=== PATIENT | male | born 1995 | race Caucasian/White ===

== ENCOUNTER 2016-10-22 00:18 | Emergency (ER) | payer OTHER ==
[2016-10-22 00:38] VITALS: RESP 16
--- NOTE | 2016-10-22 00:53 | EDPHY ---
H & P Stated Complaint: CP EARLIER Time Seen by Provider: 10/22/16 00:41 HPI/ROS: CHIEF COMPLAINT: Intermittent chest pain and anxiety HISTORY OF PRESENT ILLNESS: The patient is a 21-year-old man who comes to the emergency department complaining of intermittent chest pain that is worse with movement. It has been resolved for the last 2 hours. He states that it happened 2 or 3 times this evening. Each time lasting only for a few seconds. He states that it caused him to hyperventilate and become anxious. Denies having any cardiac history. He denies shortness of breath. No recent travel. He is a smoker. No leg pain or swelling. He is currently asymptomatic. He is not tachycardic or tachypneic or hypoxic. He did have a upper respiratory tract infection last week. REVIEW OF SYSTEMS: Constitutional: denies: chills, fever, recent illness, recent injury EENTM: denies: blurred vision, double vision, nose congestion Respiratory: denies: cough, shortness of breath Cardiac: See HPI Gastrointestinal/Abdominal: denies: abdominal pain, diarrhea, nausea, vomiting, blood streaked stools Genitourinary: denies: dysuria, frequency, hematuria, pain Musculoskeletal: denies: joint pain, muscle pain Skin: denies: lesions, rash, jaundice, bruising Neurological: denies: headache, numbness, paresthesia, tingling, dizziness, weakness Hematologic/Lymphatic: denies: blood clots, easy bleeding, easy bruising Immunologic/allergic: denies: HIV/AIDS, transplant EXAM: GENERAL: Well-appearing, well-nourished and in no acute distress. HEAD: Atraumatic, normocephalic. EYES: Pupils equal round and reactive to light, extraocular movements intact, sclera anicteric, conjunctiva are normal. ENT: TMs normal, nares patent, oropharynx clear without exudates. Moist mucous membranes. NECK: Normal range of motion, supple without lymphadenopathy or JVD. LUNGS: Breath sounds clear to auscultation bilaterally and equal. No wheezes rales or rhonchi. HEART: Regular rate and rhythm without murmurs, rubs or gallops. ABDOMEN: Soft, nontender, normoactive bowel sounds. No guarding, no rebound. No masses appreciated. BACK: No CVA tenderness, no spinal tenderness, step-offs or deformities EXTREMITIES: Normal range of motion, no pitting or edema. No clubbing or cyanosis. NEUROLOGICAL: Cranial nerves II through XII grossly intact. Normal speech, normal gait. 5/5 strength, normal movement in all extremities, normal sensation PSYCH: Normal mood, normal affect. SKIN: Warm, dry, normal turgor, no visible rashes or lesions. Source: Patient Exam Limitations: No limitations - Personal History Current Tetanus/Diphtheria Vaccine: Yes - Medical/Surgical History Hx Asthma: Yes Hx Chronic Respiratory Disease: No Hx Diabetes: No Hx Cardiac Disease: No Hx Renal Disease: No Hx Cirrhosis: No Hx Alcoholism: No Hx HIV/AIDS: No Hx Splenectomy or Spleen Trauma: No Other PMH: ASTHMA-NO MEDS. R SHOULDER CUFF - Family History Significant Family History: No pertinent family hx - Social History Smoking Status: Current some day smoker Alcohol Use: Sober Drug Use: None Constitutional: Initial Vital Signs Temperature (C) 36.4 C 10/22/16 00:25 Heart Rate 102 H 10/22/16 00:25 Respiratory Rate 16 10/22/16 00:25 Blood Pressure 174/93 H 10/22/16 00:25 O2 Sat (%) 96 10/22/16 00:25 O2 Delivery Mode Room Air Allergies/Adverse Reactions: No Known Allergies Allergy (Unverified 10/22/16 00:31) Home Medications: Medication Instructions Recorded NK [No Known Home Meds] 10/22/16 Medical Decision Making - Diagnostics EKG Interpretation: An EKG obtained and was read and documented in trace view. Please see trace view for full reading and report. ED Course/Re-evaluation: Patient is well appearing. I suspect anxiety possibly costochondritis muscle wall pain. We will obtain an EKG otherwise patient is currently asymptomatic and declines further workup or testing. He is eager to go home. He feels reassured. Differential Diagnosis: Partial list of the Differential diagnosis considered include but were not limited to; anxiety, chest wall pain, costochondritis, pericarditis and although unlikely based on the history and physical exam, I also considered PE, acute coronary disease, arrhythmia. I discussed these differential diagnoses and the plan with the patient as well as the usual and expected course. The patient understands that the diagnosis is provisional and that in medicine we are not always correct and that further workup is often warranted. Usual and customary warnings were given. All of the patient's questions were answered. The patient was instructed to return to the emergency department should the symptoms at all worsen or return, otherwise to followup with the physician as we discussed. Departure - Departure Disposition: Home, Routine, Self-Care Clinical Impression: Chest wall pain, Anxiety Condition: Fair Instructions: Anxiety (ED), Chest Wall Pain (ED) Referrals: NONE *PRIMARY CARE P,. [Primary Care Provider] - As per Instructions [facility],. [Clinic] - As per Instructions
--- NOTE | 2016-10-22 00:54 | CPEKG ---
Heart Rate: 91 RR Interval: 659 P-R Interval: 176 QRSD Interval: 86 QT Interval: 340 QTC Interval: 419 P Onarga: 60 QRS Onarga: 82 T Wave Onarga: 14 EKG Severity - NORMAL ECG - EKG Impression: SINUS RHYTHM Electronically Signed By: Peng Leyva 22-Oct-2016 00:57:07
[2016-10-22 01:12] VITALS: BP 125/78; PULSE 91; TEMP 98.4; O2SAT 93
== END 2016-10-22 01:29 | disposition home or self-care (01) ==
DX: F41.9 Anxiety disorder, unspecified (principal); R07.89 Other chest pain; F17.200 Nicotine dependence, unspecified, uncomplicated; J45.909 Unspecified asthma, uncomplicated